=== PATIENT | female | born 1975 | race African-American/Black ===

== ENCOUNTER 2018-11-13 05:04 | Day surgery (SDC) | payer OTHER ==
[2018-11-12 13:34] VITALS: BMI 43.0
--- NOTE | 2018-11-13 07:11 | HP ---
History & Physical Update - History History: No Change - Physical Physical: No Change - Assessment Assessment: No Change - Plan Plan: No Change (Agree with H&P from 11/11/18. Left ovarian cyst, for laparoscopic ovarian cystectomy by SUPERVISOR ABATTOIR. ALso for umbilical hernia repair and other procedures by general surgery.)
[2018-11-13] MEDS ORDERED: MIDAZOLAM HCL 2 MG/2 ML SINGLE DOSE VIAL ONE (07:46)
[2018-11-13] MEDS ORDERED: LIDOCAINE HCL 0.5%, 5 MG/ML (50mL SDVIAL) ONE (07:51)
[2018-11-13] MEDS ORDERED: BUPIVACAINE HCL/PF 0.5% (5 MG/ML) 30 ML VIAL IJ ONE ×3 (07:52→08:34)
[2018-11-13] MEDS ORDERED: LIDOCAINE HCL 1%, 10 MG/ML (20ML VIAL) ONE (07:52)
[2018-11-13] MEDS ORDERED: PROPOFOL 20 ML ONE ×3 (07:54→10:44)
[2018-11-13] MEDS ORDERED: ROCURONIUM BROMIDE 50 MG/5 ML SYRINGE ONE ×2 (07:54→09:00)
[2018-11-13] MEDS ORDERED: fentaNYL CITRATE 250 MCG/5 ML VIAL ONE (07:54)
[2018-11-13] MEDS ORDERED: SUCCINYLCHOLINE CHLORIDE 200 MG/10 ML SYRINGE ONE (07:54)
--- NOTE | 2018-11-13 08:21 | HP ---
Admitting History and Physical - Admission Chief Complaint: left inguinal pain and umbilical bulge History of Present Illness: 43 y.o. female with history of chronic left inguinal pain and umbilical bulge. CT A/P and US showed 2 cm left suprapubic hypoechoic mass and fat containing umbilical hernia. History Source: Patient - Smoking History Smoking history: Former smoker Have you smoked in the past 12 months: No If you are a former smoker, when did you quit?: 2011 - Alcohol/Substance Use Hx Alcohol Use: Yes (OCCAS) Home Medications - Allergies Allergies/Adverse Reactions: Allergies Allergy/AdvReac Type Severity Reaction Status Date / Time No Known Allergies Allergy Verified 11/13/18 06:44 - Home Medications Home Medications: Ambulatory Orders Ascorbic Acid [Vitamin C -] 500 mg PO DAILY #30 tablet 05/20/18 Cyanocobalamin [Vitamin B12 -] 1,000 mcg PO DAILY #30 tablet 05/20/18 Cyclobenzaprine HCl [Flexeril -] 10 mg PO TID PRN 05/20/18 Ergocalciferol (Vitamin D2) [Vitamin D2] 50,000 unit PO Q7D #4 capsule 05/20/18 Famotidine [Pepcid] 40 mg PO DAILY 05/20/18 Loratadine 10 mg PO DAILY 05/20/18 Atorvastatin Ca [Lipitor] 40 mg PO ASDIR 08/06/18 Hydroxychloroquine Sulfate [Plaquenil] 200 mg PO BID 08/06/18 Oxycodone HCl/Acetaminophen [Endocet 5-325 Tablet] 1 each PO TID PRN #60 tablet MDD 3 08/06/18 Family Disease History - Family Disease History Family Disease History: Heart Disease: Father (, [place],hx etoh), Respiratory: Daughter (age 22 asthma), Other: Father, Mother (living), Brother ( one living ), Sister (one - age 19 leukemia), Son (age 18), Daughter Review of Systems - Review of Systems Cardiovascular: reports: No Symptoms Respiratory: reports: No Symptoms Gastrointestinal: reports: Other (left inguinal pain) Physical Examination Vital Signs: Vital Signs Temperature 98.3 F 11/13/18 06:39 Pulse Rate 82 11/13/18 06:39 Respiratory Rate 18 11/13/18 06:39 Blood Pressure 115/69 11/13/18 06:39 O2 Sat by Pulse Oximetry (%) 100 11/13/18 06:38 Constitutional: Yes: Well Nourished, No Distress HENT: Yes: Normocephalic Neck: Yes: Supple Respiratory: Yes: Regular Gastrointestinal: Yes: Normal Bowel Sounds, Soft, Abdomen, Obese, Hernia (3 cm umbilical bulge, tender left ill defined mass) Imaging - Results Cat Scan: Report Reviewed, Image Reviewed Ultrasound: Report Reviewed, Image Reviewed Problem List - Problems (1) Umbilical hernia Assessment/Plan: umbilical hernia repair with possible mesh Code(s): K42.9 - UMBILICAL HERNIA WITHOUT OBSTRUCTION OR GANGRENE (2) Left groin mass Assessment/Plan: left inguinal exploration, possible excision of mass and round ligament, possible inguinal hernia repair Code(s): R19.09 - OTHER INTRA-ABDOMINAL AND PELVIC SWELLING, MASS AND LUMP
[2018-11-13] MEDS ORDERED: ceFAZolin SODIUM 1 GM VIAL ONE (08:27)
[2018-11-13] MEDS ORDERED: ceFAZolin SODIUM 1 GM VIAL IVPB ONE (08:28)
--- NOTE | 2018-11-13 09:59 | OP ---
Operative Note - Note: Operative Date: 11/13/18 (dictation [id number]) Pre-Operative Diagnosis: pelvic pain, left ovarian cyst Operation: laparoscopic left ovarian cystectomy, lysis of adhesions Findings: enlarged left ovary left ovarian cyst X 2 adhesions from left ovary to colon/rectum Post-Operative Diagnosis: Same as Pre-op Surgeon: Renuka Mixon Supervisor Aluminum Boat Assembly: Adele Bruno Anesthesiologist/ACCOUNTING CONSULTANT: Veronika Ulloa MD Anesthesia: General Specimens Removed: left ovarian cyst wall Estimated Blood Loss (mls): 20 Operative Report Dictated: Yes
[2018-11-13] MEDS ORDERED: NALOXONE HCL 0.4 MG/ML VIAL ONE ×2 (11:08)
[2018-11-13] MEDS ORDERED: NEOSTIGMINE METHYLSULFATE 0.5 MG/1 ML - 10 ML MDV ONE (11:09)
[2018-11-13] MEDS ORDERED: oxyCODONE HCL 5 MG TABLET PO PRN (11:33)
[2018-11-13] MEDS ORDERED: ONDANSETRON 4 MG/2 ML VIAL IVPUSH PRN (11:33)
[2018-11-13] MEDS ORDERED: PROMETHAZINE HCL 25 MG/1 ML VIAL IVPB PRN (11:33)
[2018-11-13] MEDS ORDERED: LACTATED RINGERS SOLUTION 1,000 ML IV SCH (11:45)
--- NOTE | 2018-11-13 11:49 | OP ---
Operative Note - Note: Operative Date: 11/13/18 Pre-Operative Diagnosis: left iinguinal mass, umbilical hernia Operation: left inguinal mass and round ligament resection, inguinal hernia repair with PHASIX mesh, and open umbilical hernia suture repair Findings: 1 cm umbilical defect, 2 cm inguinal mass of the round ligament Implants: Phasix mesh Post-Operative Diagnosis: Same as Pre-op Surgeon: José Luis Joshua Development Officer: Adele Bruno Anesthesia: General Specimens Removed: inguinal mass and round ligament, umbilical hernia sac Estimated Blood Loss (mls): 50 Operative Report Dictated: Yes
[2018-11-13 13:10] VITALS: TEMP 97.7
[2018-11-13] MEDS ORDERED: oxyCODONE HCL 5 MG TABLET PO ONE (13:10)
[2018-11-13] MEDS ORDERED: oxyCODONE HCL 5 MG TABLET ONE (13:12)
--- NOTE | 2018-11-13 14:09 | OP ---
DATE OF OPERATION: 11/13/2018 PREOPERATIVE DIAGNOSIS: Left ovarian cyst. POSTOPERATIVE DIAGNOSIS: Left ovarian cyst. PROCEDURE: Laparoscopic left ovarian cystectomy. SURGEON: Renuka Mixon MD ANESTHESIA: General. ANESTHESIOLOGIST: Veronika Ulloa MD DIRECTOR FRANCHISE SALES: LUZ Garcias COMPLICATIONS: None. ESTIMATED BLOOD LOSS: 20 mL. COUNTS: Sponge, needle, and instrument counts correct. DISPOSITION: Stable to PACU. BRIEF HISTORY AND PROCEDURE: Patient is a 43-year-old female who was seen in the office with complaints of pelvic pain. Upon ultrasound evaluation, she was found to have a left ovarian cyst. Patient signed consent for the procedure in the office and elected to undergo a left ovarian cystectomy laparoscopically. She was admitted to [facility] on November 13, 2018. Consents were reconfirmed. The patient was then taken back to the operating room, placed in the dorsal lithotomy position, given general anesthesia, prepped and draped in the usual standard fashion. A Irby catheter was placed under sterile conditions, and a hard time-out was performed. A 5-mm incision was created in the umbilicus, and a Veress needle was placed intraabdominally. The abdomen insufflated with CO2 gas. A trochar was placed in the umbilicus. A camera was inserted. After confirmation of intraperitoneal placement, two bilateral lower quadrant 5-mm ports were placed under direct visualization. The left ovary was examined, noted to be enlarged with two cysts appreciated, one approximately 3 cm, another approximately 2 cm. The ovary was also noted to have adhesions to the left descending colon and rectal area. The ovary was elevated and the adhesions to the bowel were removed with sharp dissection using the EndoShears device with no cautery as well as blunt dissection with Laparoscopic Peanuts. After the anatomy was restored, an incision was made on the ovarian stroma for the smaller cyst, and the cyst was drained. No cyst wall was removed at this time as the cyst was too small to dissect sharply. The larger ovarian cyst was then targeted. An incision was made in the ovarian stroma. The cyst wall was grasped and removed in several pieces and bluntly dissected away from the ovarian stroma. The cyst wall was sent to Pathology for permanent evaluation. The surgical bed was cauterized with monopolar and bipolar cautery, and a piece of Surgicel was placed in the surgical site. Excellent hemostasis was achieved. The ovary was freed and the adhesions were completely removed on the left side. Right ovary appeared to be normal. At this point, all the trocars were removed. Abdomen was desufflated, and a second portion of the procedure was begun by Dr. José Luis Joshua, who is planning to do a left inguinal exploration and umbilical hernia repair. Please see his portion of the dictation. . RENUKA MIXON DO /[id number]
[2018-11-13 16:01] VITALS: BP 123/75; PULSE 101
--- NOTE | 2018-11-14 08:19 | OP ---
DATE OF OPERATION: 11/13/2018 PROCEDURE: 1. Left inguinal exploration, resection of inguinal mass and round ligament, and inguinal hernia repair with Phasix mesh. 2. Umbilical hernia suture repair. PREOPERATIVE DIAGNOSIS: Left inguinal mass and umbilical hernia. POSTOPERATIVE DIAGNOSIS: Left inguinal mass, r/o round ligament endometriosis, and umbilical hernia SURGEON: José Luis Joshua MD BIRD SITTER: LUZ Garcias ANESTHESIA: General endotracheal. FINDINGS ON PROCEDURE: This is a 43-year-old female who presented with painful left inguinal mass and an umbilical hernia. A CT scan and ultrasound revealed a 2-cm inguinal mass at the left suprapubic area and inguinal canal and fat- containing umbilical hernia. On physical examination, patient has a partially reducible umbilical hernia with 1-cm defect and an ill-defined 2-cm inguinal mass, which was tender, close to the left pubic tubercle. The patient also has a large ovarian cyst for which her Digital Pre Press Operator recommended laparoscopic cystectomy. Patient was advised inguinal exploration and possible resection of the mass together with the round ligament and hernia repair as well as umbilical hernia repair. Consent was obtained after discussing the risks, benefits, and alternatives of the procedure. DESCRIPTION OF PROCEDURE: Patient was brought to the operating room and placed in supine position. General endotracheal anesthesia was administered. Patient was then placed in lithotomy position and Dr. Mixon proceeded to perform the left ovarian cyst procedure. After this was completed, the umbilical port site was lengthened to about 2 cm using scalpel blade No. 15 for further dissection. Bovie cautery dissection was done until the hernia sac was isolated down towards the fascia. The defect was about 1 cm in its widest diameter. The hernia sac was then amputated at the level of the fascia, and the defect was closed with one figure-of-8 Prolene 0 suture. The wound was closed with Vicryl 3-0 suture for the dermis and continuous Biosyn 4-0 suture for the subcuticular layer. The wound closed suture was reinforced with Dermabond and a pressure dressing was applied. Attention was then shifted to the left inguinal region, where a 5-cm skin crease incision over the inguinal canal was made using scalpel blade No. 10. Dissection was carried down to the subcutaneous tissue, Scarpas tissue, until the external oblique aponeurosis was visualized using Bovie cautery. The external oblique aponeurosis was opened using Metzenbaum scissors down to its attachment to the pubic tubercle. Proximally, it was extended above the internal oblique muscle. Careful dissection of the inguinal canal was done using Peanut Forceps as well as Bovie cautery until the mass was exposed, which was firmly attached to the pubic tubercle in continuity with the round ligament. The mass, which was about 2 cm in size and smooth and firm was detached or resected from its attachment to the pubic tubercle, and the round ligament was transected beyond its exit from the internal ring and suture ligated with Vicryl 2-0. This was then pushed back into the preperitoneal space. The inguinal floor, which was opened due to the deep location of the mass and the round ligament were then reconstructed by apposing the transversalis fascia to the Coopers ligament with continuous Prolene 0 suture. This was carried proximally towards the internal ring. Afterwards, the Phasix mesh was deployed, which was about 6 x 4 cm in size to reinforce the reconstruction of the inguinal floor. The ilioinguinal nerve was spared, and this was placed above the mesh. The external oblique aponeurosis was closed with continuous Vicryl 0 suture. The wound was then closed with interrupted Vicryl 3-0 suture for the dermis and continuous Biosyn 4-0 suture for the subcuticular layer. The wound closure was reinforced with Dermabond and covered with sterile dressing. The patient was successfully extubated and transferred to the post-anesthesia care unit in satisfactory condition. ESTIMATED BLOOD LOSS: About 50 mL. WOUND CLASS: Clean. Patient received 1 g of Ancef prior to the start of the procedure. Estella [id number] MTDD
--- NOTE | 2018-11-16 14:28 | SURG ---
Surgery Salesperson Floor Coverings Note Salesperson Floor Coverings: Adele Bruno PA-C Date of Service: 11/13/18 Diagnosis: pelvic pain, left ovarian cyst Procedure: laparoscopic left ovarian cystectomy, lysis of adhesions I was present for the entirety of the operative procedure. For further detail, please refer to operative report. Visit type - Case Type Case Type: Scheduled - Emergency Emergency Visit: No - New patient This patient is new to me today: Yes Date on this admission: 11/13/18 - Critical Care Critical Care patient: No
--- NOTE | 2018-11-16 14:29 | SURG ---
Surgery Wind Up Worker Note Wind Up Worker: Adele Bruno PA-C Date of Service: 11/13/18 Diagnosis: left iinguinal mass, umbilical hernia Procedure: left inguinal mass and round ligament resection, inguinal hernia repair with PHASIX mesh, and open umbilical hernia suture repair I was present for the entirety of the operative procedure. For further detail, please refer to operative report. Visit type - Case Type Case Type: Scheduled - Emergency Emergency Visit: No - New patient This patient is new to me today: Yes Date on this admission: 11/13/18 - Critical Care Critical Care patient: No
--- NOTE | 2018-11-17 16:05 | PATH ---
Surgical Pathology Report Patient Name: JUAN BAILEY [facility]. Rec. #: [id number] /Age/Gender: 1975 (Age: 43) / F Account: [id number] Location: [facility] SURGICAL Taken: 11/13/2018 Received: 11/13/2018 Reported: 11/17/2018 Physicians: Renuka Mixon M.D. Specimen(s) Received A: LEFT OVARIAN CYST WALL B: HERNIA SAC C: INGUINAL MASS WITH ROUND LIGAMENT Clinical History Umbilical/inguinal hernia, left ovarian cyst Final Diagnosis A. OVARIAN CYST WALL, LEFT, CYSTECTOMY: FRAGMENTS OF HEMORRHAGIC CORPUS LUTEUM CYST. B. HERNIA SAC, INGUINAL, HERNIA PAIR: FIBROMEMBRANOUS TISSUE COMPATIBLE WITH HERNIA SAC. C. INGUINAL MASS WITH ROUND LIGAMENT, EXCISION: ENDOMETRIOSIS. SEE COMMENT. Comment: Immunohistochemical stains performed at [place], [place] ([id number]) and interpreted at [facility] show endometrial stroma is highlighted by CD10, supporting the above diagnosis. Positive and negative controls (internal if applicable) show appropriate results. Electronically Signed Vanessa Saxena M.D. Gross Description A. Received in formalin labeled "left ovarian cyst wall," is a 1.7 x 1.7 x 0.3 cm aggregate of scales-red soft tissue fragments, possibly consistent with a disrupted cyst. The specimen is submitted in toto in one cassette. B. Received in formalin labeled "hernia sac," and a 3.0 x 1.0 x 0.5 cm scales-salgado portion of fibromembranous tissue, consistent with a hernia sac. Tool Filer sections are submitted in one cassette. C. Received in formalin labeled "inguinal mass with round ligament," is a 2.5 x 2.1 x 2.0 cm firm tissue mass. Sectioning reveals scales, rubbery parenchyma. Tool Filer sections are submitted in 3 cassettes. DL/11/13/201811/13/2018
== END 2018-11-13 15:50 | disposition home or self-care (01) ==
LOC: JASU-SURG 05:04
PROVIDERS: ATTEND Surgery
PROC: 0UB14ZZ Excision of Left Ovary, Percutaneous Endoscopic Approach (ICD-10-PCS; principal; 2018-11-13 08:00)
PROC: 0YU64JZ Supplement Left Inguinal Region with Synthetic Substitute, Percutaneous Endoscopic Approach (ICD-10-PCS; 2018-11-13 08:00)
DX: K40.90 Unilateral inguinal hernia, without obstruction or gangrene, not specified as recurrent (principal); K42.9 Umbilical hernia without obstruction or gangrene; N80.3 Endometriosis of pelvic peritoneum; N83.12 Corpus luteum cyst of left ovary
CPT/HCPCS: 88302-TC; 88305-TC; 94760